=== PATIENT | male | born 1960 | race Caucasian/White ===

== ENCOUNTER 2017-02-07 21:45 | Emergency (ER) | payer OTHER, MEDICAID ==
[~2017-02-07] VITALS: Ht 172.7 cm; Wt 117.9 kg
[~2017-02-07 21:45] MED LIST: ACET325T53 PO; ARIP5TAB10 PO; CARV12.548 PO; CLON0.1T PO; CYCL-10 PO; DOCU250C PO; DULO60CA41 PO; DULR10 RC; FLUT16SP16 NS; FURO-150 PO; GABA600T PO; INSU100I20 SQ; IPRA3AMP9 INH; LIDOINT TP; MAGN400O4 PO; MULT-1117; NITR0.4T6 SL; NOR10 PO; TRAM50TA92 PO; ZOLP5TAB2 PO
[2017-02-07 21:55] VITALS: BP_SYST 123
[2017-02-07] MEDS ORDERED: GASTROGRAFIN 120 ML ONE (22:14)
[2017-02-07] MEDS ORDERED: LORazepam 2 MG/ML VIAL IM ONE (22:45)
[2017-02-07] MEDS ORDERED: LORazepam 2 MG/ML VIAL (FOR ER USE) ONE (22:59)
[2017-02-08 00:10] VITALS: BP_SYST 106
== END 2017-02-08 00:10 | disposition home or self-care (01) ==
LOC: SED 21:45
DX: K94.23 Gastrostomy malfunction (principal); J44.9 Chronic obstructive pulmonary disease, unspecified; I25.2 Old myocardial infarction; K21.9 Gastro-esophageal reflux disease without esophagitis; D64.9 Anemia, unspecified; I13.0 Hypertensive heart and chronic kidney disease with heart failure and stage 1 through stage 4 chronic kidney disease, or unspecified chronic kidney disease; N18.3 Chronic kidney disease, stage 3 (moderate); I50.40 Unspecified combined systolic (congestive) and diastolic (congestive) heart failure; Z79.4 Long term (current) use of insulin; Z46.59 Encounter for fitting and adjustment of other gastrointestinal appliance and device
CPT/HCPCS: 43760; 74240; 96372; 99284; J2060; Q9963

== ENCOUNTER 2017-02-11 07:56 | Inpatient (IN) | payer OTHER, MEDICAID ==
[2017-02-11] VITALS (20 sets, daily range): BP systolic 115–144; BP diastolic 57–88; PULSE 55–62; RESP 13–30; TEMP 90.7–96.7; O2SAT 90–95
[~2017-02-11] VITALS: Ht 172.7 cm; Wt 112.9 kg
[~2017-02-11 07:56] MED LIST changes: +ACET325T53 GT; +ANT30 PO; +CLON0.1T GT; -CLON0.1T PO; +CYCL-365 PO; +DOCU250C GT; -DOCU250C PO; +EPOE1VIA13 SUBCUT; +INSU100V9 SUBCUT; +LISI-600 PO; +MAGN400O4 GT; -MAGN400O4 PO; +MIRT45TA3 PO; +NAPR-690 PO; +NYSCR30 TP; +PANT20TA2 PO; +POTA10TA79 PO
--- NOTE | 2017-02-11 07:57 | NUR ---
Arrived via ALS for SOB which was recognized by staff today. Patient is grunting only. EMs is unable to state what pts baseline mental status is beyond him being confused. Patient is hypothermic on arrival 90.7F rectal. Called housekeeper home for Fanvibe device. Placed in room 1 . Placed on electronic device monitor, blood pressure machine and pulse oximeter. To gown for exam. Side rails up. Report given to Jessica BLOUNT.
--- NOTE | 2017-02-11 08:00 | NUR ---
ER MD Morales at bedside evaluating the patient
--- NOTE | 2017-02-11 08:05 | NUR ---
Patient brought to ER by ALS from [facility] for SOB. Patient has long medical history, bedridden, AAOx2, Gtube, Gupta. Patient has severe generalized pitting +3 edema, anasarca. Rhonchi & wheezes. Will continue to monitor.
--- NOTE | 2017-02-11 08:06 | NUR ---
# 20 gauge angiocath placed to RIGHT WRIST. Use of asceptic technique. Opsite placed over site. Blood return noted. Flushed with 10 cc of normal saline. No evidence of infiltration noted. Patient tolerated well.
--- NOTE | 2017-02-11 08:10 | NUR ---
Trombone Slide Assembler at bedside for blood draw including lactic acid & blood cultures
[2017-02-11] MEDS ORDERED: HYDR2TAB34 PO (08:24)
[2017-02-11] MEDS ORDERED: MULT-300 GT (08:24)
[2017-02-11] MEDS ORDERED: DULR10 RC (08:24)
[2017-02-11] MEDS ORDERED: PRO40 GT (08:24)
[2017-02-11] MEDS ORDERED: ONDA4TAB5 GT (08:24)
[2017-02-11] MEDS ORDERED: ZIN220 GT (08:24)
[2017-02-11] MEDS ORDERED: [UNRECOGNIZED DRUG - OTHER] (08:24)
[2017-02-11] MEDS ORDERED: ASCO120C2 PO (08:24)
[2017-02-11] MEDS ORDERED: NA P118E RC (08:24)
[2017-02-11] MEDS ORDERED: LORA-259 GT (08:24)
[2017-02-11] MEDS ORDERED: ALBUTEROL SULFATE 0.083% 2.5 MG/3 ML VIAL.NEB IH ONE (08:30)
[2017-02-11] MEDS ORDERED: NACL 0.9% 1,000 ML IV ONE (08:30)
[2017-02-11] MEDS ORDERED: IPRATROPIUM BROM 0.5 MG/2.5 ML VIAL.NEB (ATROVENT) IH ONE (08:30)
--- NOTE | 2017-02-11 08:30 | NUR ---
Patient has anasarca, severe testicular and suprapubic edema. Neither the penis or the meatus can be visualized. As a result of anticipated difficult new Gupta insertion, per protocol, new Gupta insertion ON HOLD at this time. ER MD Morales aware.
[2017-02-11 08:32] LABS: BASOPHILS % (AUTO) 0.4 % (0.0-2.0); EOSINOPHILS % (AUTO) 0.2 % (0.0-4.0); HEMATOCRIT 24.3 % (36-54); HEMOGLOBIN 7.9 g/dL (14.0-18.0); LYMPHOCYTES # (AUTO) 0.4 K/uL (1.0-5.5); LYMPHOCYTES % (AUTO) 8.8 % (20.5-51.5); MEAN CORPUSCULAR HEMOGLOBIN 27 pg (27-31); MEAN CORPUSCULAR HGB CONC 33 % (32-36); MEAN CORPUSCULAR VOLUME 83 fL (79.0-98.0); MONOCYTES # (AUTO) 0.2 K/uL (0.0-1.0); MONOCYTES % (AUTO) 3.9 % (1.7-9.3); NEUTROPHILS # (AUTO) 3.8 K/uL (1.8-7.7); NEUTROPHILS % (AUTO) 86.7 % (40.0-70.0); PLATELET COUNT (AUTO) 118 K/uL (130-430); RED BLOOD CELL COUNT(AUTO) 2.92 MIL/uL (4.2-6.2); RED CELL DISTRIBUTION WIDTH 16.6 % (9.0-15.0); WHITE BLOOD COUNT (AUTO) 4.4 K/uL (4.8-10.8)
--- NOTE | 2017-02-11 08:40 | NUR ---
Medication reconciliation completed with information provided by - list from facility. Any prior medication reconciliation on file was reviewed and corrected.
[2017-02-11] MEDS ORDERED: cefTRIAXone 2 GM VIAL ONE (08:44)
[2017-02-11 08:52] LABS: INR 1.1 (0.80-1.20); PROTHROMBIN TIME 12.1 SECS (9.5-12.5)
--- NOTE | 2017-02-11 09:10 | NUR ---
Patient arrived with midline to left upper arm. Dressing is paritially falling off, there are multiple layers of gauze under tagaderm, however there is no bio-patch. Dressing removed. Liz-insertion site cleaned with ETOH and chlorohexadine, bio-patch applied all with sterile technique.
[2017-02-11 09:44] LABS: CALCIUM 8.1 mg/dL (8.4-11.0); CREATININE 2.34 mg/dL (0.55-1.30)
[2017-02-11 09:49] LABS: ALBUMIN 2.3 g/dL (3.4-4.8); TOTAL BILIRUBIN 0.7 mg/dL (0.0-1.0); TOTAL PROTEIN, SERUM 6.6 g/dL (6.4-8.3)
[2017-02-11 10:05] LABS: POTASSIUM 5.6 mmol/L (3.5-5.1)
--- NOTE | 2017-02-11 10:05 | NUR ---
Patient was off unit for CT as per [facility] automation engineering technician the patient appeared blue, without obeservable chest rise. ER staff responded. Pulse was poorly palpable. Airway was opened, patient was placed on high flow O2. Cardiac monitoring was resumed, patient found to have severe bradycardiac in the 30s with wide complex rhythem. Patient immediantly returned to ER for further care.
--- NOTE | 2017-02-11 10:12 | NUR ---
On arrival back to ER HR 55 with SR narrow complex rhythem. Patient in fowlers position with High flow O2. RT is at bedside getting ready for BiPAP.
--- NOTE | 2017-02-11 10:30 | NUR ---
PT IN CT SCAN AT 1003 CALLED THAT PT NOT BREATHING . ENTERED CT ROOM PATIENT ON ROOM AIR. AMBU BAG USED AT 100% RETURNED PATIENT TO ER BED 1 PLACED ON BIPAP AT 10/5 BR12 100% FIO2.. WILL DRAW ABG IN 30 MIN. PATIENT BREATHING AT RR17 HR 59. PATIENTS COLOR PINK SAT 100% AT THIS TIME.
[2017-02-11 10:46] LABS: BLOOD GAS PH 7.252 (7.350-7.450)
[2017-02-11 10:47] LABS: ABG TOTAL HEMOGLOBIN 8.3 G/dL (12.0-18.0); BLOOD GAS BASE EXCESS -5.4 mmol/L (-3.0-3.0); BLOOD GAS COHb% 0.3 % (0.5-1.5); BLOOD GAS HHB 1.3 % (0.0-6.0); BLOOD O2Hb% 98.1 % (94.0-97.0)
--- NOTE | 2017-02-11 10:56 | NUR ---
Patient will be admitted to care of DR GEORGE. Admitted to ICU unit. Will go to room . Belongings list completed. Summary report printed. Report given to MINE.
--- NOTE | 2017-02-11 11:05 | NUR ---
Transfer to ICU 4 via ACLS protocol. Licensed nurse present. IV present no signs or symptoms of infiltration.
--- NOTE | 2017-02-11 11:05 | NUR ---
RECEIVED PT FROM ED TO ICU BED 4 AROUSABLE BUT DOESN'T ANSWER QUESTIONS. RR 30/ SATS 93% WITH BIPAP 10/5//40%. LUNGS WITH CRACKLES AND WHEEZING BILAT. PT HAS A GT SITE. ABD DISTENDED WITH BOWEL SOUNDS. PT HAS GENERALIZED EDEMA 4= PITTING INCLUDING EXTREMITIES. UNABLE TO FEEL PULSES. SALINE LOCK 22G TO RIGHT WRIST AND LEFT UPPER ARM PICC LINE. FLUSHES WELL AND GOOD BLOOD RETURN. SITE REDRESSED DRESSING WAS UNPEELING AND CATHETER EXPOSED. SR ON MONITOR. VSS. ARMS AND LEGS HAVE DRY PEELING SKIN WITH SCABS. COCCYX HAS DENUDING. PHOTOS TAKEN. PER ER, PT KEEPS TAKING BIPAP OFF AND RESTRAINTS APPLIED TO BOTH WRISTS UPON ARRIVAL TO ICU.
--- NOTE | 2017-02-11 11:30 | NUR ---
CALLED DR GEORGE FOR ORDERS, HE SAID HE WOULD BE IN. PT KEEPS TAKING OFF BIPAP DESPITE RESTRAINTS.
--- NOTE | 2017-02-11 13:30 | NUR ---
DR CARVALHOIUM IN TO SEE PT. ORDERS LEFT.
[2017-02-11] MEDS ORDERED: MILK OF MAGNESIA 30 ML UDC PO PRN (14:00)
[2017-02-11] MEDS ORDERED: NA PHOS,M-B/NA PHOS,DI-BA 118 ML (FLEET ENEMA) RC PRN (14:00)
[2017-02-11] MEDS ORDERED: ONDANSETRON 4 MG ODT TAB GT PRN (14:00)
[2017-02-11] MEDS ORDERED: BISACODYL 10 MG/SUPPOSITORY RC PRN (14:00)
--- NOTE | 2017-02-11 14:00 | NUR ---
DR. CAPELLAN IN TO SEE PT. ORDERS LEFT.
[2017-02-11] MEDS ORDERED: DOCUSATE SODIUM 100 MG/10 ML UDC GT PRN (14:15)
[2017-02-11] MEDS ORDERED: ACETAMINOPHEN 650 MG/20.3 ML UDC GT PRN (14:15)
[2017-02-11 14:36] LABS: ABG TOTAL HEMOGLOBIN 8.4 G/dL (12.0-18.0); BLOOD GAS BASE EXCESS -2.7 mmol/L (-3.0-3.0); BLOOD GAS COHb% 0.4 % (0.5-1.5); BLOOD GAS HHB 8.9 % (0.0-6.0); BLOOD GAS PH 7.373 (7.350-7.450); BLOOD O2Hb% 90.4 % (94.0-97.0)
--- NOTE | 2017-02-11 15:15 | NUR ---
RT NOTES Found pt off of BIPAP, on 2L NC per Dr Snider's order. Pt. is claiming he is having SOB. Pt was educated on HHN tx, deep breathing and coughing exercises. Refer to progress notes.
[2017-02-11] MEDS: IPRATROPIUM/ALBUTEROL SULFATE 3 ML AMPUL.NEB INH PRN ×2 (15:20→21:52)
--- NOTE | 2017-02-11 15:27 | NUR ---
RT NOTES Placed pt. back on BIPAP, with same settings 08/24 BUR 14 40% due to pt's continued complain of SOB and continued wheezing despite HHN tx. Pt. confirm, respiratory status improved after being back on BIPAP. Will monitor pt.
[2017-02-11] MEDS: MILK OF MAGNESIA 30 ML UDC GT SCH (16:06)
[2017-02-11] MEDS: LORazepam 1 MG TABLET GT PRN ×2 (16:07→21:58)
--- NOTE | 2017-02-11 16:30 | NUR ---
CALLED DR CAPELLAN REGARDING PTS C/O UNABLE TO BREATH ON 022L NC AND INCREASED WHEEZING AND TIGHTNESS. ORDERS LEFT FOR SOLUMEDROL.
[2017-02-11] MEDS ORDERED: methylPREDNISolone SOD SUCC/PF 62.5 MG/ML VIAL IVP ONE (17:30)
[2017-02-11] MEDS: methylPREDNISolone SOD SUCC/PF 62.5 MG/ML VIAL IVP SCH (18:44)
[2017-02-11] MEDS: HYDROmorphone 2 MG TAB GT PRN ×2 (18:50→23:30)
--- NOTE | 2017-02-11 19:00 | NUR ---
SPOKE WITH DR GEORGE REGARDING ANTIBIOTIC COVERAGE. HE WILL BE IN TO SEE PT IN THE AM AND DECIDE. REMAINS SR. CONTINUE TO TAKE BIPAP OFF WITH RESTRAINTS ON. PT MEDICATED WITH DILAUDID AND ATIVAN VIA GT FOR AGITATION.
--- NOTE | 2017-02-11 19:30 | NUR ---
OPENING NOTE Pt received from day shift RN. Pt awake and alert, oriented to person. Pt appears anxious, calling out to staff. Pt oriented to place and reassurance provided. Pt on bipap, tolerating settings with O2 SAT of 93%. Pt is NSR. +4 pitting edema noted to all four extremities. Pt receiving TF at 50 mL/hr. Correct GT placement confirmed via auscultation and aspiration of residual. MIROSLAVA single-lumen PICC present, flushed with blood return. [address] to right wrist, flushes easy. No redness/swelling observed at either site. Gupta catheter in place. Yellow urine draining, securement device in place. Bilateral soft-wrist restraints are in place. No signs of injury noted. Will turn and reposition Q2HR. Heels floated off bed. Bed locked and in low position, call light within reach. Will continue to monitor pt closely.
[2017-02-12] VITALS (29 sets, daily range): BP systolic 101–152; BP diastolic 57–86; PULSE 55–80; RESP 11–23; TEMP 96.7–97.6; O2SAT 92–99
--- NOTE | 2017-02-12 | NUR ---
NURSING NOTE Pt calling out for nursing and requires frequent reassurance and reorientation. Tries to reach for mask despite restraints being in place. Pt re-educated multiple times on reason for restraint use and importance of keeping bipap mask in place to assist with his breathing. No signs of injury due to restraints. Pt has been medicated with ativan x1 prn and dilaudid x1 prn for anxiety and pain. Will continue to monitor pt closely.
--- NOTE | 2017-02-12 00:05 | NUR ---
TF RESIDUAL TF residual 450 mL. TF held per MD orders. Will continue to monitor.
--- NOTE | 2017-02-12 02:00 | NUR ---
TF RESIDUAL RECHECK TF residual recheck yielded residual volume of 400 mL. TF held per MD order. Will continue to monitor.
[2017-02-12] MEDS: LORazepam 1 MG TABLET GT PRN ×2 (02:05→13:38)
--- NOTE | 2017-02-12 04:00 | NUR ---
HYGIENE Pt medicated for pain with prn dilaudid. Hygiene provided to pt at this time. Oral, skin, opal, and guzman care provided and CHG bath given. Linens changed. Z-guard applied to sacral area and scrotum. Pt repositioned q2hr with heels floated off bed. Pt tolerated activity well.
--- NOTE | 2017-02-12 04:05 | NUR ---
TF RESIDUAL TF residual recheck yielded volume of 350 mL. TF remains on hold per MD order. Will continue to monitor.
[2017-02-12] MEDS: HYDROmorphone 2 MG TAB GT PRN ×3 (04:16→21:28)
[2017-02-12] MEDS: methylPREDNISolone SOD SUCC/PF 62.5 MG/ML VIAL IVP SCH ×3 (06:07→21:21)
[2017-02-12] MEDS: INSULIN REGULAR, HUMAN 100 UNITS/ML, 10 ML VIAL (novoLIN R) SUBCUT PRN ×4 (06:41→21:30)
[2017-02-12 07:05] LABS: ALBUMIN 2.1 g/dL (3.4-4.8); CALCIUM 8.3 mg/dL (8.4-11.0); CREATININE 2.42 mg/dL (0.55-1.30); POTASSIUM 5.5 mmol/L (3.5-5.1); TOTAL BILIRUBIN 0.5 mg/dL (0.0-1.0); TOTAL PROTEIN, SERUM 6.2 g/dL (6.4-8.3)
--- NOTE | 2017-02-12 07:06 | NUR ---
CLOSING NOTE Pt currently resting quietly, but continues to require frequent reassurance and reorientation. Attempts to remove bipap even while hands are in restraints. O2 SAT of 97% with bipap on current settings. VSS. TF remains on hold. Day shift nurse informed of TF residual and DVT prophylaxis. Report given via SBAR. All care endorsed.
[2017-02-12 07:11] LABS: BASOPHILS % (AUTO) 0.1 % (0.0-2.0); HEMATOCRIT 22.6 % (36-54); HEMOGLOBIN 7.6 g/dL (14.0-18.0); LYMPHOCYTES # (AUTO) 0.3 K/uL (1.0-5.5); LYMPHOCYTES % (AUTO) 7.3 % (20.5-51.5); MEAN CORPUSCULAR HEMOGLOBIN 29 pg (27-31); MEAN CORPUSCULAR HGB CONC 34 % (32-36); MEAN CORPUSCULAR VOLUME 85 fL (79.0-98.0); MONOCYTES % (AUTO) 0.5 % (1.7-9.3); NEUTROPHILS # (AUTO) 3.8 K/uL (1.8-7.7); NEUTROPHILS % (AUTO) 92.1 % (40.0-70.0); PLATELET COUNT (AUTO) 83 K/uL (130-430); RED BLOOD CELL COUNT(AUTO) 2.65 MIL/uL (4.2-6.2); RED CELL DISTRIBUTION WIDTH 17.1 % (9.0-15.0); WHITE BLOOD COUNT (AUTO) 4.1 K/uL (4.8-10.8)
[2017-02-12] MEDS: IPRATROPIUM/ALBUTEROL SULFATE 3 ML AMPUL.NEB INH PRN ×2 (07:29→15:23)
--- NOTE | 2017-02-12 07:30 | NUR ---
PT RECEIVED IN BED WITH EYES OPEN AND ALERT/CONFUSED, BIPAP IN PLACE WITH SETTINGS OF 10/5 40% AND SATURATION 95%. LUNGS SLIGHT WHEEZING BILATERALLY UPON AUSCULTATION. RESTRAINTS IN PLACE DUE TO PT PULLING OFF BIPAP MASK AND IV LINES. SINUS RHYTHM AND SINUS BRADYCARDIA. PITTING EDEMA 4+ BILATERALLY IN LEGS AND FEET. UNABLE TO FEEL PEDAL PULSES. FEET LIFTED OFF BED WITH PILLOW SUPPORT. ABD DISTENDED WITH HYPOACTIVE BOWEL SOUNDS. G-TUBE IN PLACE AND TUBE FEEDING ON HOLD DUE TO CONTINUED HIGH RESIDUAL OF 250CC. HOB UP. ENGLE CATHETER WITH SMALL AMOUNT OF JENNIFER URINE. SCD IN PLACE. 20G SALINE LOCK RIGHT WRIST IN TACT. LEFT UPPER ARM PICC LINE WITH 12 CM EXTERNAL. DRESSING DRY AND INTACT. NO IV FLUIDS INFUSING AT THIS TIME. PT IN ISOLATION FOR HX OF MRSA NARES. SKIN ON ARMS AND LEGS WITH RASH AND SCABS. WILL CONTINUE TO MONITOR. Addendum: 02/12/17 at 1647 by Lucia DAILEY DENUDING NOTED TO COCCYX. Z-GUARD IN PLACE.
--- NOTE | 2017-02-12 08:00 | NUR ---
RT NOTES Took pt. off of BIPAP and placed on 2L NC for breakfast. No immediate adverse reactions noted. Will monitor pt.
--- NOTE | 2017-02-12 08:30 | NUR ---
PT C/O BEING HUNGRY. RESIDUAL 250. PT ON PUREED DIET. ONLY TOOK EGGS DUE TO RESIDUAL. PT UNABLE TO FEED HIMSELF. RIGHT SIDE IS WEAK AND CONTRACTED. NO COUGHING OR TROUBLE SWALLOWING. HOB ELEVATED DURING FEEDING.
--- NOTE | 2017-02-12 08:30 | NUR ---
RT NOTES Pt. cont. to tolerate 2L NC well. No respiratory distress noted. SPO2 92%
[2017-02-12] MEDS: PANTOPRAZOLE GRANULES PACKET 40 MG GT SCH (08:31)
[2017-02-12] MEDS: MILK OF MAGNESIA 30 ML UDC GT SCH (08:31)
--- NOTE | 2017-02-12 09:28 | NUR ---
PT COMPLAINS OF PAIN /. ADMINISTERED DILAUDID FOR PAIN. WILL CONTINUE TO MONITOR AND EVALUATE RESPONSE.
--- NOTE | 2017-02-12 09:35 | NUR ---
RT NOTES Found pt's SPO2 91%, H.R 67 R.R 17, no distress noted. Increased O2 to 3L per titration order to keep sat. >92. Will cont. to monitor pt.
--- NOTE | 2017-02-12 11:00 | NUR ---
DR. CAPELLAN AT BEDSIDE. ORDERS LEFT.
--- NOTE | 2017-02-12 11:24 | NUR ---
RT NOTES ABG results given to Dr Snider. No changes at this time. OK to keep pt. on 3L NC and keep sat. >92%. Current saturation is 93%. no respiratory distress noted. Will monitor pt.
[2017-02-12] MEDS ORDERED: ENOXAPARIN SODIUM 40 MG/0.4 ML SYRINGE SUBCUT ONE (11:30)
[2017-02-12 11:53] LABS: ABG TOTAL HEMOGLOBIN 8.7 G/dL (12.0-18.0); BLOOD GAS BASE EXCESS -2.6 mmol/L (-3.0-3.0); BLOOD GAS PH 7.386 (7.350-7.450)
[2017-02-12 11:54] LABS: BLOOD GAS COHb% 0.2 % (0.5-1.5); BLOOD GAS HHB 14.9 % (0.0-6.0); BLOOD O2Hb% 84.3 % (94.0-97.0)
[2017-02-12] MEDS ORDERED: cefTRIAXone 1 GM IVPB PREMIX 50 ML IV ONE (12:00)
--- NOTE | 2017-02-12 12:30 | NUR ---
TUBE FEEDING RESIDUAL 200. DID NOT GIVE LUNCH DUE TO CONTINUED HIGH RESIDUAL.
--- NOTE | 2017-02-12 15:10 | NUR ---
SPOKE TO DR CAPELLAN REGARDING LOW URINE OUTPUT. ORDERS LEFT FOR IVF TO BE STARTED.
[2017-02-12] MEDS: MUPIROCIN 2% TOPICAL OINTMENT 22 GM TP SCH ×2 (15:17→21:22)
--- NOTE | 2017-02-12 15:30 | NUR ---
PT HAS 150 CC TUBE FEED RESIDUAL. TUBE FEEDS CONTINUED TO BE HELD.
--- NOTE | 2017-02-12 19:14 | NUR ---
CALLED DR. SOLOMON FOR CONSULT @5035. SPOKE TO RYANNE. NURSE IS AWARE.
--- NOTE | 2017-02-12 19:25 | NUR ---
SPOKE WITH DR SOLOMON ON THE PHONE REGARDING LOW URINE OUTPUT. ORDER LEFT.
--- NOTE | 2017-02-12 19:30 | NUR ---
OPENING NOTE Pt received from day shift RN. Pt is awake, alert and oriented to person. NSR on air sampling and monitoring, tolerating 3L O2 via nasal cannula with O2 SAT of 98%. Correct placement of GTube verified via auscultation of air. Residual volume 90 mL. Tubefeeding will be restarted. PICC to MIROSLAVA. Single lumen, infusing IVF. Bilateral-soft wrist restraints in place. No signs of injury present as a result of restraints. Gupta catheter in place, draining yellow urine. Heels floated off bed, bed locked and in low position with call light in reach. Will continue to monitor pt closely. Will turn/reposition pt q2hr.
[2017-02-12] MEDS ORDERED: SODIUM POLYSTYRENE SULFONATE 15 GM/60 ML UDBTL GT SCH (19:45)
[2017-02-13] VITALS (24 sets, daily range): BP systolic 132–169; BP diastolic 77–98; PULSE 82–91; RESP 14–24; TEMP 97.5–98.3; O2SAT 90–98; Ht 172.7 cm; Wt 112.9 kg
--- NOTE | 2017-02-13 | NUR ---
CONFUSION Pt asleep off and on throughout night. While awake, frequently calls out for . Reoriented to current location and time of day.
[2017-02-13] MEDS: LORazepam 1 MG TABLET GT PRN ×3 (04:36→13:48)
--- NOTE | 2017-02-13 04:40 | NUR ---
ANXIETY Pt anxious/worried. Reassurance and reorientation provided, but pt difficult to console. PRN ativan administered per orders.
--- NOTE | 2017-02-13 05:45 | NUR ---
PAIN Pt complains of pain 07/30. PRN dilaudid administered per orders.
[2017-02-13] MEDS: HYDROmorphone 2 MG TAB GT PRN ×2 (05:57→09:56)
[2017-02-13] MEDS: methylPREDNISolone SOD SUCC/PF 62.5 MG/ML VIAL IVP SCH (05:57)
[2017-02-13] MEDS: INSULIN REGULAR, HUMAN 100 UNITS/ML, 10 ML VIAL (novoLIN R) SUBCUT PRN ×4 (06:04→21:01)
[2017-02-13 06:37] LABS: HEMATOCRIT 22.9 % (36-54); HEMOGLOBIN 7.8 g/dL (14.0-18.0); LYMPHOCYTES # (AUTO) 0.4 K/uL (1.0-5.5); LYMPHOCYTES % (AUTO) 8.2 % (20.5-51.5); MEAN CORPUSCULAR HEMOGLOBIN 29 pg (27-31); MEAN CORPUSCULAR HGB CONC 34 % (32-36); MEAN CORPUSCULAR VOLUME 85 fL (79.0-98.0); MONOCYTES # (AUTO) 0.1 K/uL (0.0-1.0); MONOCYTES % (AUTO) 1.9 % (1.7-9.3); NEUTROPHILS # (AUTO) 4.9 K/uL (1.8-7.7); NEUTROPHILS % (AUTO) 89.9 % (40.0-70.0); PLATELET COUNT (AUTO) 101 K/uL (130-430); RED BLOOD CELL COUNT(AUTO) 2.69 MIL/uL (4.2-6.2); RED CELL DISTRIBUTION WIDTH 17.3 % (9.0-15.0); WHITE BLOOD COUNT (AUTO) 5.4 K/uL (4.8-10.8)
[2017-02-13 06:41] LABS: CALCIUM 8.2 mg/dL (8.4-11.0); CREATININE 2.38 mg/dL (0.55-1.30); POTASSIUM 5.3 mmol/L (3.5-5.1)
--- NOTE | 2017-02-13 06:44 | NUR ---
CLOSING NOTE Pt resting quietly in bed. No acute distress noted. Tolerating nasal cannula with O2 SAT 96-98%. Tubefeeding infusing, pt tolerating well. IVF infusing through MIROSLAVA PICC. No redness/swelling observed at site. Pt turned/repositioned q2hr. Skin care provided as needed and CHG bath provided. SCDs in place to bilateral lower extremities. All needs met. Care will be endorsed to day shift RN.
[2017-02-13 07:00] LABS: IRON (SERUM) 116 mcg/dL (59-158); TOTAL IRON BIND. CAPACITY 167 ug/dL (250-450)
--- NOTE | 2017-02-13 08:00 | NUR ---
AM NOTES IN BED AWAKE, CONFUSED. NO ACUTE DISTRESS NOTED. ON O2 3L O2 SAT AT 93%. ON TUBE FEEDING TOLERATING WELL. IVF INFUSING WELL ON THE LEFT UPPER ARM PICC LINE. ON BILATERAL WRIST RESTRAINTS. TURN AND REPOSITIONED FOR COMFORT. WILL MONITOR.
--- NOTE | 2017-02-13 09:00 | NUR ---
tube feeding/ breakfast tolerating tube feeding at this time. no residual noted. eat 30% 0f his breakfast.
--- NOTE | 2017-02-13 09:05 | NUR ---
Nutrition Update Elijah Scale 10 noted. Pt admitted for acute respiratory failure, COPD. Diet: pureed BMI: 38 kg/m2 RD to follow per nutrition care standards.
[2017-02-13] MEDS: MILK OF MAGNESIA 30 ML UDC GT SCH (09:09)
[2017-02-13] MEDS: ENOXAPARIN SODIUM 40 MG/0.4 ML SYRINGE SUBCUT SCH (09:09)
[2017-02-13] MEDS: PANTOPRAZOLE GRANULES PACKET 40 MG GT SCH (09:10)
[2017-02-13] MEDS: cefTRIAXone 1 GM IVPB PREMIX 50 ML IV SCH (09:11)
--- NOTE | 2017-02-13 09:11 | NUR ---
DR. SOUSA IN TO SEE PT. ORDERS LEFT.
[2017-02-13] MEDS: MUPIROCIN 2% TOPICAL OINTMENT 22 GM TP SCH ×2 (09:22→21:02)
--- NOTE | 2017-02-13 10:00 | NUR ---
NOTES TURNED AND REPOSITIONED. COMPLAINED OF PAIN. MEDICATED ORDERED. WILL MONITOR.
[2017-02-13] MEDS: IPRATROPIUM/ALBUTEROL SULFATE 3 ML AMPUL.NEB INH PRN ×2 (12:01→18:38)
[2017-02-13] MEDS ORDERED: FUROSEMIDE 100 MG in D5W 90 ML IV SCH (13:00)
[2017-02-13] MEDS: methylPREDNISolone SOD SUCC 40 MG/ML VIAL IVP SCH ×2 (13:47→21:02)
--- NOTE | 2017-02-13 15:40 | NUR ---
MD ROUNDS SEEN BY DR. GEORGE AT BEDSIDE.
--- NOTE | 2017-02-13 18:30 | NUR ---
NOTES HAD A MEDIUM SOFT BM.CLEANED AND REPOSITIONED. LASIX DRIP INFUSING WELL. TOLERATED FEEDING. REFUSED TO EAT DINNER AT THIS TIME. WILL ENDORSE
--- NOTE | 2017-02-13 19:00 | NUR ---
Initial Notes Patient asleep at this time. No s/s of pain noted. No SOB noted, on 3L/NC, recently received breathing treatment. No s/s of nausea/vomiting. PICC line patent, flushes well, infusing Lasix drip as ordered. Gupta catheter in place, output noted. Patient repositioned in bed. Bilateral wrist restraints in place, circulation checks done. Tube feeding ongoing, no residual noted at this time. Will continue to monitor.
[2017-02-13] MEDS: ASCORBIC ACID 500 MG TABLET GT SCH (21:02)
--- NOTE | 2017-02-13 22:00 | NUR ---
Notes Patient sleeping. No s/s of pain noted. No SOB noted. IV site patent, flushes well. Patient given CHG bath and repositioned in bed. Will continue to monitor.
[2017-02-14] VITALS (34 sets, daily range): BP systolic 139–184; BP diastolic 77–112; PULSE 74–93; RESP 13–24; TEMP 97.4–98.4; O2SAT 78–100
[2017-02-14] MEDS: cloNIDine HCL 0.1 MG TABLET GT PRN ×2 (01:03→08:26)
--- NOTE | 2017-02-14 01:15 | NUR ---
Notes Patient saturating at 84-87% on 3L/NC, c/o SOB; placed on Bipap by RT- saturation at 94-96% at this time. Medicated pt for blood pressure of 184/104, will re assess. Will continue to monitor pt.
[2017-02-14] MEDS: HYDROmorphone 2 MG TAB GT PRN (02:11)
--- NOTE | 2017-02-14 02:42 | NUR ---
Notes Patient sleeping. No s/s of pain noted. No SOB noted. IV site patent, flushes well. Patient repositioned in bed. Will continue to monitor.
--- NOTE | 2017-02-14 04:00 | NUR ---
Notes Patient sleeping at this time. Afebrile. No SOB noted, maintained on Bipap 40%. No s/s of pain noted. Patient repositioned in bed. Will continue to monitor.
[2017-02-14] MEDS: methylPREDNISolone SOD SUCC 40 MG/ML VIAL IVP SCH ×3 (06:08→21:57)
[2017-02-14] MEDS: INSULIN REGULAR, HUMAN 100 UNITS/ML, 10 ML VIAL (novoLIN R) SUBCUT PRN ×4 (06:11→22:01)
--- NOTE | 2017-02-14 06:40 | NUR ---
Closing Notes Patient asleep at this time. No s/s of pain noted. No SOB noted. No s/s of nausea/vomiting. PICC line patent, flushes well. Patient repositioned in bed. Bilateral wrist restraints in place, circulation checks done. Tube feeding ongoing, no residual noted at this time. Goals met. Will continue to monitor.
[2017-02-14 06:53] LABS: EOSINOPHILS % (AUTO) 0.1 % (0.0-4.0); HEMATOCRIT 22.8 % (36-54); HEMOGLOBIN 7.7 g/dL (14.0-18.0); LYMPHOCYTES # (AUTO) 0.5 K/uL (1.0-5.5); LYMPHOCYTES % (AUTO) 5.9 % (20.5-51.5); MEAN CORPUSCULAR HEMOGLOBIN 29 pg (27-31); MEAN CORPUSCULAR HGB CONC 34 % (32-36); MEAN CORPUSCULAR VOLUME 85 fL (79.0-98.0); MONOCYTES # (AUTO) 0.3 K/uL (0.0-1.0); MONOCYTES % (AUTO) 3.3 % (1.7-9.3); NEUTROPHILS # (AUTO) 6.9 K/uL (1.8-7.7); NEUTROPHILS % (AUTO) 90.7 % (40.0-70.0); PLATELET COUNT (AUTO) 110 K/uL (130-430); RED BLOOD CELL COUNT(AUTO) 2.67 MIL/uL (4.2-6.2); RED CELL DISTRIBUTION WIDTH 17.5 % (9.0-15.0); WHITE BLOOD COUNT (AUTO) 7.7 K/uL (4.8-10.8)
[2017-02-14 07:18] LABS: ALBUMIN 2.6 g/dL (3.4-4.8); CALCIUM 8.4 mg/dL (8.4-11.0); CREATININE 2.57 mg/dL (0.55-1.30); POTASSIUM 5.4 mmol/L (3.5-5.1); TOTAL BILIRUBIN 0.6 mg/dL (0.0-1.0); TOTAL PROTEIN, SERUM 6.7 g/dL (6.4-8.3)
--- NOTE | 2017-02-14 07:39 | NUR ---
AM Assessment Received pt AAOx1 with confusion. Pt is on BiPAP 40% FiO2. No SOB or signs of acute distress noted. Pt denies any pain or discomfort. Skin warm and dry. PICC present on PATRICK and MIROSLAVA, both clean, dry, intact, patent. Pt is on lasix drip 3 ml/hr. Generalized pitting edema noted on BUE 2+, BLE 3+, and scrotum. BUE with multiple bruises and scabs. Bilateral wrist restraints in place for safety and pulling at tubes, no skin breakdown noted, pulses present. GT in place with Diabetesource 50 ml/hr. Gupta in place draining yellow urine. SCDs in place. BLE elevated with pillows. Bed in lowest position. Will continue to monitor.
[2017-02-14] MEDS: IPRATROPIUM/ALBUTEROL SULFATE 3 ML AMPUL.NEB INH PRN (07:43)
--- NOTE | 2017-02-14 08:06 | NUR ---
Patient Update Pt saturating 100% with bipap. RT admistering breathing treatment and change pt from bipap to 3L O2 via NC. Will continue to monitor.
--- NOTE | 2017-02-14 08:15 | NUR ---
Patient Update Pt noted with SOB and wheezing post breathing treatment. Placed pt back on bipap with 40% FiO2. Pt also noted with elevated BP 180/110, administered PRN clonidine. Will continue to monitor.
[2017-02-14] MEDS: ENOXAPARIN SODIUM 40 MG/0.4 ML SYRINGE SUBCUT SCH (08:27)
[2017-02-14] MEDS: PANTOPRAZOLE GRANULES PACKET 40 MG GT SCH (08:27)
[2017-02-14] MEDS: ASCORBIC ACID 500 MG TABLET GT SCH ×2 (08:27→21:58)
[2017-02-14] MEDS: MILK OF MAGNESIA 30 ML UDC GT SCH (08:27)
[2017-02-14] MEDS: cefTRIAXone 1 GM IVPB PREMIX 50 ML IV SCH (08:28)
[2017-02-14] MEDS: MUPIROCIN 2% TOPICAL OINTMENT 22 GM TP SCH ×2 (08:28→21:58)
[2017-02-14 08:56] LABS: ABG TOTAL HEMOGLOBIN 8.6 G/dL (12.0-18.0); BLOOD GAS BASE EXCESS -2.9 mmol/L (-3.0-3.0); BLOOD GAS COHb% 0.5 % (0.5-1.5); BLOOD GAS HHB 6.9 % (0.0-6.0); BLOOD GAS PH 7.426 (7.350-7.450)
--- NOTE | 2017-02-14 09:11 | NUR ---
Dr. Rowland in to see pt.
--- NOTE | 2017-02-14 09:15 | NUR ---
Lasix Lasix titrate to 4 mg/hr per Dr. Rowland's orders. Will continue with plan of care.
--- NOTE | 2017-02-14 10:00 | NUR ---
Dr. Chilel at bedside with pt.
--- NOTE | 2017-02-14 10:12 | NUR ---
Social Service Note: Pt referred by social work msw for ICU Screening; GLASS PROCESSING WORKER reviewed pt's chart; pt was admitted from [facility] with acute respiratory failure. GLASS PROCESSING WORKER observed pt resting in bed with bi-pap on. GLASS PROCESSING WORKER will remain available for support and will follow up as needs arise.
[2017-02-14] MEDS: FUROSEMIDE 100 MG in D5W 90 ML IV SCH (10:21)
[2017-02-14] MEDS: hydrALAZINE HCL 20 MG/ML VIAL IVP PRN ×2 (10:56→18:52)
--- NOTE | 2017-02-14 11:05 | NUR ---
BP/PICC Line Pt's BP still elevated 178/106 despite administration of PRN clonidine via GT. Received new orders from Dr. Rowland, administered hydralazine PRN IVP, effective. Also removed PICC line from [facility] per Dr. Rowland's orders, bleeding controlled, catheter tip intact, PICC line measures 46 cm. Pt in no apparent distress and is drowsy/lethargic and is able to follow simple commands. Bed in lowest position. Will continue to monitor.
[2017-02-14] MEDS: PIPERACILLIN/TAZO 2.25G/DEX-IS 50 ML IV SCH ×2 (11:22→16:58)
--- NOTE | 2017-02-14 13:24 | NUR ---
Patient Round Pt resting in bed, arousable to voice, able to make needs known, able to verbalize needs. Pt denies any pain or discomfort at this time. Pt repositioned. No BM noted. Will continue to monitor.
[2017-02-14 15:12] LABS: FOLATE (FOLIC ACID) 10.3 ng/mL (>3.0)
--- NOTE | 2017-02-14 19:20 | NUR ---
Closing/Endorsement Pt remains drowsy, arousable to name, able to follow simple commands. No SOB or signs of distress noted. BP controlled with PRN hydralazine. Bed in lowest position. Bilateral soft wrist restraints in place for safety, no skin breakdown noted, pulses present. Endorsed plan of care to Mass RN via SBAR tool and bedside round.
[2017-02-14] MEDS: LORazepam 1 MG TABLET GT PRN (21:58)
[2017-02-15] VITALS (33 sets, daily range): BP systolic 128–175; BP diastolic 71–100; PULSE 73–86; RESP 12–24; TEMP 97.6–98.2; O2SAT 87–99
[2017-02-15] MEDS: PIPERACILLIN/TAZO 2.25G/DEX-IS 50 ML IV SCH ×4 (00:24→17:23)
[2017-02-15] MEDS: hydrALAZINE HCL 20 MG/ML VIAL IVP PRN ×2 (01:12→12:41)
[2017-02-15] MEDS: HYDROmorphone 2 MG TAB GT PRN (03:53)
[2017-02-15] MEDS: cloNIDine HCL 0.1 MG TABLET GT PRN ×2 (03:54→17:32)
[2017-02-15] MEDS: methylPREDNISolone SOD SUCC 40 MG/ML VIAL IVP SCH ×3 (06:26→21:30)
[2017-02-15] MEDS: INSULIN REGULAR, HUMAN 100 UNITS/ML, 10 ML VIAL (novoLIN R) SUBCUT PRN ×4 (06:29→21:38)
[2017-02-15 06:40] LABS: BASOPHILS % (AUTO) 0.2 % (0.0-2.0); CALCIUM 8.3 mg/dL (8.4-11.0); CREATININE 2.73 mg/dL (0.55-1.30); HEMOGLOBIN 7.1 g/dL (14.0-18.0); LYMPHOCYTES # (AUTO) 0.4 K/uL (1.0-5.5); LYMPHOCYTES % (AUTO) 5.8 % (20.5-51.5); MEAN CORPUSCULAR HEMOGLOBIN 29 pg (27-31); MEAN CORPUSCULAR HGB CONC 34 % (32-36); MEAN CORPUSCULAR VOLUME 85 fL (79.0-98.0); MONOCYTES # (AUTO) 0.2 K/uL (0.0-1.0); NEUTROPHILS # (AUTO) 5.5 K/uL (1.8-7.7); PLATELET COUNT (AUTO) 77 K/uL (130-430); POTASSIUM 5.5 mmol/L (3.5-5.1); RED BLOOD CELL COUNT(AUTO) 2.49 MIL/uL (4.2-6.2); RED CELL DISTRIBUTION WIDTH 17.4 % (9.0-15.0); WHITE BLOOD COUNT (AUTO) 6.1 K/uL (4.8-10.8)
[2017-02-15] MEDS: IPRATROPIUM/ALBUTEROL SULFATE 3 ML AMPUL.NEB INH PRN ×2 (07:24→16:06)
--- NOTE | 2017-02-15 07:40 | NUR ---
AM Assessment Received pt AAOx1, able to verbalize needs. Pt is on bipap 08/24, BUR 14, FiO2 40%. Pt denies any pain or discomfort at this time. Skin warm and dry. PICC PATRICK clean, dry, intact, patent, no erythema noted. Noted multiple bruises and scabs on BUE, generalized pitting edema, scrotal edema, redness on sacrum. GT in place with diabetesource 50 ml/hr, 200 ml residual noted, put TF on hold. Gupta in place draining yellow urine. Bilateral soft wrist restraints in place for safety, skin intact, pulses present. Bed in lowest position. Call light in reach. Will continue to monitor. Addendum: 02/15/17 at 1625 by Abbie Lopez RN Pt is on lasix drip 4 mg/hr.
--- NOTE | 2017-02-15 07:40 | NUR ---
RT NOTES Took pt. off of BIPAP and placed on 3L NC for meals. No immediate adverse reactions noted. Pt. was reeducated on deep-breathing and coughing exercises, w/c he was able to demonstrate. Will cont. to monitor pt.
[2017-02-15 07:43] LABS: HEMATOCRIT 21.2 % (36-54)
--- NOTE | 2017-02-15 08:30 | NUR ---
Patient Update Repositioned pt. Pt denies any pain or discomfort. Pt was placed on 3L O2 via NC, saturating at 90%. Pt had some SOB while eating but was able to tolerate meal and had 50%. Pt also encouraged to cough and is able to follow commands and demonstrate. After 15 minutes on 3L O2, pt noted to desaturate to 88%. Pt encouraged to cough again, but pt refused d/t SOB. Administered oral care and placed pt back on bipap. Will continue to monitor.
[2017-02-15] MEDS: ENOXAPARIN SODIUM 40 MG/0.4 ML SYRINGE SUBCUT SCH (09:01)
[2017-02-15] MEDS: ASCORBIC ACID 500 MG TABLET GT SCH ×2 (09:01→21:31)
[2017-02-15] MEDS: MUPIROCIN 2% TOPICAL OINTMENT 22 GM TP SCH ×2 (09:01→21:30)
[2017-02-15] MEDS: MILK OF MAGNESIA 30 ML UDC GT SCH (09:02)
[2017-02-15] MEDS: PANTOPRAZOLE GRANULES PACKET 40 MG GT SCH (09:02)
[2017-02-15] MEDS: LACTOBACILLUS RHAMNOSUS GG 1 CAP CAPSULE PO SCH ×2 (09:02→21:31)
[2017-02-15] MEDS: FUROSEMIDE 100 MG in D5W 90 ML IV SCH (09:08)
--- NOTE | 2017-02-15 10:01 | NUR ---
DISCHARGE PLANNING DC Planning order for LTAC evaluation. Faxed DC Planning order to [facility] office [phone]. Notified Oral Quijano Will follow up. Addendum: 02/15/17 at 1057 by Feli AYALA spoke with Macie, will come and evaluate patient today. Addendum: 02/15/17 at 1508 by Feli Myers DP Spoke with Macie patient accepted at [facility]. Bed assignment will be requested upon discharge order. Macie requested to be made aware if patient will be downgraded or if ICU bed is needed. KYUNG Conner will notify RN. Addendum: 02/15/17 at 1510 by Feli AYALA Per CM admission notes zhanna Iyer requested to not be called.
[2017-02-15] MEDS ORDERED: SODIUM POLYSTYRENE SULFONATE 15 GM/60 ML UDBTL GT ONE (10:15)
[2017-02-15] MEDS ORDERED: SODIUM POLYSTYRENE SULFONATE 15 GM/60 ML UDBTL PO ONE (10:45)
--- NOTE | 2017-02-15 11:29 | NUR ---
Discharge planning Met with Dr Castaneda in nurses' station to discuss plan of care. Dr Castaneda agrees that LTAC eval appropriate for this patient. Order is in [employer]. DC liaison planner will fax binu requesting eval.
--- NOTE | 2017-02-15 14:51 | NUR ---
DC planning: ICU nurse Suzanne will call Dr. Castaneda for LTAC level of care required and discharge order to LTAC-per dc enterprise resource planner Oral Edmond LTAC liaison Macie is currently looking for ICU bed for pt..Pt on bipap 40% and IV Lasix drip-- MINE
--- NOTE | 2017-02-15 16:12 | NUR ---
BT INITIATION: Telephone consent obtained from patient's , Shireen Abdullahi, agreeing to administration of blood. Blood has been typed and crossmatched. Blood sent from blood bank. Information on unit of blood checked against patient wristband at bedside by two nurses. All information matches. Patient or responsible constitution party informed of potential complications associated with blood transfusion. Informed of possible transfusion reaction symptoms. Aware of need to notify nurse at once of itching, shortness of breath, flushing, feeling of impending doom, or other symptoms not previously present. Vital signs taken within 5 minutes prior to initiation of transfusion T 98, P 75, R 17, BP 159/74. RN will remain with patient for first 15 minutes of transfusion at which time vital signs will be re-assessed.
--- NOTE | 2017-02-15 16:18 | NUR ---
15 MINUTES OF BLOOD TRANSFUSION VS T 99, P 76, R 18, BP 160/100. No acute distress noted. Pt denies any pain or discomfort. Pt is receiving 1 of 2 units. Will continue to monitor.
--- NOTE | 2017-02-15 17:00 | NUR ---
Patient Update Pt switch from bipap to 3L O2 via NC for dinner. Tolerating well, SOB minimal, and pt able to cough and mobilize secretions. Pt had 50%-75% of meal. Pt also able to verbalize needs. Will continue to monitor.
--- NOTE | 2017-02-15 18:15 | NUR ---
Blood Transfusion/2nd unit Blood Transfusion 1st unit given, no adverse reactions noted, VSS, afebrile. Started 2nd unit of blood transfusion. VS: T 97.6, P 80, R 17, BP 148/87. Will continue to monitor.
--- NOTE | 2017-02-15 19:40 | NUR ---
Closing/Endorsement Pt remains on 3L O2 via NC, tolerating well, saturating in low 90%, mouth breathing. Pt denies any pain or discomfort. Bilateral soft wrist restraints in place for safety, no skin breakdown noted, pulses present. All extremities elevated with pillow. Pt is still on 2nd unit of blood transfusion and lasix 4mg/hr. Endorsed plan of care to Mass RN via SBAR tool and bedside round.
--- NOTE | 2017-02-15 21:50 | NUR ---
Blood transfusion completed. Vital signs obtained. BP 158/81, Pulse 79, Respiratory rate 18, Temp of 97.7. Pt denied any pain or discomfort.
[2017-02-16] VITALS (27 sets, daily range): BP systolic 151–171; BP diastolic 75–102; PULSE 75–159; RESP 12–20; TEMP 97.6–98.8; O2SAT 89–100
[2017-02-16] MEDS: PIPERACILLIN/TAZO 2.25G/DEX-IS 50 ML IV SCH ×5 (00:50→23:25)
[2017-02-16] MEDS: hydrALAZINE HCL 20 MG/ML VIAL IVP PRN ×4 (01:06→21:21)
[2017-02-16] MEDS: methylPREDNISolone SOD SUCC 40 MG/ML VIAL IVP SCH ×3 (05:53→21:11)
[2017-02-16] MEDS: cloNIDine HCL 0.1 MG TABLET GT PRN ×3 (05:54→17:41)
[2017-02-16] MEDS: INSULIN REGULAR, HUMAN 100 UNITS/ML, 10 ML VIAL (novoLIN R) SUBCUT PRN ×4 (06:14→21:18)
[2017-02-16 06:30] LABS: BASOPHILS % (AUTO) 0.7 % (0.0-2.0); EOSINOPHILS % (AUTO) 0.1 % (0.0-4.0); HEMATOCRIT 27.1 % (36-54); HEMOGLOBIN 9.2 g/dL (14.0-18.0); LYMPHOCYTES # (AUTO) 0.3 K/uL (1.0-5.5); LYMPHOCYTES % (AUTO) 4.8 % (20.5-51.5); MEAN CORPUSCULAR HEMOGLOBIN 29 pg (27-31); MEAN CORPUSCULAR HGB CONC 34 % (32-36); MEAN CORPUSCULAR VOLUME 85 fL (79.0-98.0); MONOCYTES # (AUTO) 0.3 K/uL (0.0-1.0); MONOCYTES % (AUTO) 6.2 % (1.7-9.3); NEUTROPHILS # (AUTO) 4.9 K/uL (1.8-7.7); NEUTROPHILS % (AUTO) 88.2 % (40.0-70.0); PLATELET COUNT (AUTO) 72 K/uL (130-430); RED BLOOD CELL COUNT(AUTO) 3.18 MIL/uL (4.2-6.2); RED CELL DISTRIBUTION WIDTH 16.3 % (9.0-15.0); WHITE BLOOD COUNT (AUTO) 5.5 K/uL (4.8-10.8)
[2017-02-16 06:33] LABS: ALBUMIN 2.5 g/dL (3.4-4.8); CALCIUM 8.4 mg/dL (8.4-11.0); CREATININE 2.88 mg/dL (0.55-1.30); TOTAL BILIRUBIN 0.7 mg/dL (0.0-1.0); TOTAL PROTEIN, SERUM 6.6 g/dL (6.4-8.3)
--- NOTE | 2017-02-16 07:15 | NUR ---
Price of care Pt with 3L oxygen via nasal canula, lung sounds crackles. Oxygen saturation 93%. On Lasix drip 4mg/min. +4 Pitting edema to all extremities. Scrotal edema. On restraints without sign of injury. Turned and repositioned. Zguard applied to sacrum and scrotum. Will continue to monitor.
[2017-02-16] MEDS: IPRATROPIUM/ALBUTEROL SULFATE 3 ML AMPUL.NEB INH PRN ×3 (07:53→21:37)
[2017-02-16] MEDS: ASCORBIC ACID 500 MG TABLET GT SCH ×2 (08:15→21:12)
[2017-02-16] MEDS: MILK OF MAGNESIA 30 ML UDC GT SCH (08:15)
[2017-02-16] MEDS: LACTOBACILLUS RHAMNOSUS GG 1 CAP CAPSULE PO SCH ×2 (08:15→21:12)
[2017-02-16] MEDS: ENOXAPARIN SODIUM 40 MG/0.4 ML SYRINGE SUBCUT SCH (08:17)
[2017-02-16] MEDS: PANTOPRAZOLE GRANULES PACKET 40 MG GT SCH (08:17)
[2017-02-16] MEDS: MUPIROCIN 2% TOPICAL OINTMENT 22 GM TP SCH ×2 (08:18→21:11)
--- NOTE | 2017-02-16 09:05 | NUR ---
DISCHARGE PLANNING Called patient Shireen Abdullahi [phone] left voice message requesting return call back. Called [facility] spoke with Sylwia in medical records dept who confirmed Shireen only personal service representative and confirmed contact number on file same on facesheet. Spoke with Macie who was made aware still pending discharge order for bed assignment. Addendum: 02/16/17 at 1222 by Feli AYALA Charge Nurse Isela made aware patient accepted [facility] pending discharge order and if patient can transfer to [facility] status. Spoke with [facility] who put in requested for ICU bed availability and will notify DCP when bed becomes available. DCP will follow up. Addendum: 02/16/17 at 1559 by Feli Myers DP called and spoke with Macie, [place] liaison who will follow up on ICU bed availability. DCP will continue to follow up.
[2017-02-16] MEDS: FUROSEMIDE 100 MG in D5W 90 ML IV SCH (09:40)
--- NOTE | 2017-02-16 12:35 | NUR ---
Nutrition F/U Admitting Diagnosis Acute respiratory failure, COPD Reviewed Pertinent Medical/Surgical Hx Medical Record Primary RN Medical History Comment: DM, CVA, HTN, CHF, CKD, obesity, L side craniotomy, GT placement per MD notes Subjective Information Pt seen resting in bed, +nasal cannula, +bilateral wrist restraints, seemingly lethargic, w/ TF infusing as per MD orders. Per RN, pt was able to tolerate 60% of breakfast; noted 100% intakes of coffee, Boost Plus supplement, and yogurt. RN also reported that pt has been tolerating TF well, no residuals or s/s aspiration from either PO intakes/TF. RD noted no active TF order; likely accidently completed again, as pt only takes PO diet for oral gratification. RN reported that pt will continue on lasix d/t 4+ pitting edema and lung crackles/SOB. Per EMR, PO Intakes: 38% average x2 meals. TF Intakes: 400 ml 02/16/17. Residuals: 10 ml 02/16/17. Abd is soft w/ active bowel sounds. Last BM x1 02/15/17. I/O: 1348/1090 (+258 ml) per 12 hours. Recommend continuing puree diet and re-implementing Diabetisource AC at 50 ml/hr, Free Water Flush: 100 via GT. Pt is not appropriate for nutrition education. Current Diet Order/Nutrition Support Pureed x5 days Patient/Significant Other Unable To Verbalize Education Provided Not Indicated Pertinent Medications furosemide/D5% IV at 4 ml/hr (14 kcal/day), colace, MOM, dulcolax suppository Pertinent Labs BG 378 H, POC BG 394 H Height (Feet) 5 feet Height (Inches) 8.00 inches Weight (Pounds) 249 pounds (admission) BEDSCALE WT: 364 lb, 166 kg (02/16/17); likely inaccurate d/t multiple items on bedscale Weight (Calculated Kilograms) 112.073784 kilograms Patient Weight 112.945 kg Body Mass Index 37.86 kg/m2 Usual Weight 210 lbs %UBW 119 %IBW 161 [place]/Adjusted Body Weight IBW: 154 lb, 70 kg. Adj IBW (obesity): 178 lb, 81 kg Recent Weight Change Yes - Possible unintentional 26 lb wt loss within 6 months; 9% wt change Weight Status Obese Gastrointestinal Symptoms None Last BM Feb 13, 2017 Food Allergies Unknown Usual Diet At Home Bhaskar Marx: Glucerna 1.2 at 50 cc/hr x20 hours; ney, SHANTEL, [facility] Skin Integrity Comment: Elijah scale: 13; per nursing notes, L/R arm: bruise; lower R leg: excoriation; posterior coccyx: denuded Current % PO Poor Estimated Energy Expenditure (kcals/day) 8232-0970 kcal/day (25-30 kcal/kg IBW for maintenance) Estimated Protein Required (g/day) 42-91 gm/day (1.3-2 gm/kg IBW for maintenance) Estimated Fluid Required (l/day) Per MD (CHF, CKD) Problem/Etiology/Signs/Symptoms Unintentional wt loss related to pathophysiological causes as evidenced by wt Hx: 275 lb, 125 kg (08/2016), and 26 lb possible wt loss and 9% wt change within five months. Expected Outcomes/Goals - Monitor appetite and EN tolerance w/ goal of pt meeting 100% of estimated nutritional needs, labs trending WNL, normal GI function, and skin integrity/wt maintenance Dietitian Recommendations * Recommend continuing pureed diet per MD * Recommend Diabetisource AC at 50 ml/hr, Free Water Flush: 100 via GT Provides: 1440 kcal/day, 72 gm protein/day, and 1082 ml free water/day Meets: 106% of lower end of estimated caloric needs and 79% of upper end of estimated protein needs Follow Up Moderate Risk: F/U in 3-5 days Addendum: 02/17/17 at [address] Nutrition Consult (Non-intact skin/IAD) 02/16/17 [id number]
--- NOTE | 2017-02-16 13:00 | NUR ---
Changed guzman justin Observed urine leaking through the guzman insertion site. Flushed guzman catheter. Showed evidence of being clogged. Guzman catheter changed including guzman bag. Pt tolerated procedure well. Urine draining well without leak. Will continue to monitor.
[2017-02-16] MEDS: LORazepam 1 MG TABLET GT PRN (14:15)
--- NOTE | 2017-02-16 15:17 | NUR ---
NOTES DR. GEORGE CAME AND EXAMINED THE PATIENT;INFORMED REGARDING PATIENT'S CONSTANT HIGH BLOOD PRESSURE EVEN AFTER GIVING PRN BLOOD PRESSURE MEDS SAID ITS OKAY AND WILL LOOK INTO IT Addendum: 02/16/17 at 1846 by Marie Hogan RN SHOWED MD THE TREND LIST REPORT FROM [id number] WITH BLOOD PRESSURE RANGING FROM 151/81-179/[id number] STATED "ITS OKAY ITS NOT TOO HIGH"
[2017-02-16] MEDS: ACETYLCYSTEINE 20% 4 ML VIAL (RT) INH SCH ×2 (15:29→21:36)
--- NOTE | 2017-02-16 16:00 | NUR ---
Paged Dr. Castaneda for pt's agitation and restlessness; Ativan not yet due at this time.
--- NOTE | 2017-02-16 16:05 | NUR ---
Elijah Scale Evaluation Patient evaluated for a low Elijha score of 13. Patient was awake, alert, confused, and received in a Mckay bed with an IsoFlex JOSEPH low air-loss mattress. Patient is unable to turn in bed independently. Skin is poor; Buttocks have erythema from IAD; Bilateral lower extremities have erythema; Right buttock at opal-anal area has non-intact skin from IAD with red tissue, no drainage. Recommend reposition patient side to side only every two hours with pillow support, and off-load pressure areas with pillows for pressure re-distribution. Elevate, off-load and float bilateral heels with pillows. Perform Skin care and monitor skin integrity q shift. Use Calmoseptine cream on opal, buttocks, and other moisture susceptible areas qid and as needed for soiling. Maintain patient on a low air-loss mattress.
[2017-02-16] MEDS ORDERED: LORazepam 1 MG TABLET PO ONE (16:45)
--- NOTE | 2017-02-16 17:50 | NUR ---
Followed up Becky from the pharmacy.
[2017-02-16] MEDS: MENTHOL/ZINC OXIDE 113 GM OINT. TP SCH (17:52)
--- NOTE | 2017-02-16 18:00 | NUR ---
BP PRN BP medications given every time they are due. PT denied pain when RN specifically asked him if he is in pain. Also denied anxiety every time he is asked about it. Respiration rate within normal limits. NO SOB. Gupta patent draining yellow colored urine. Call light in reach. Good skin care provided throughout shift.
--- NOTE | 2017-02-16 19:10 | NUR ---
Report given to My,RN and endorsed all care.
--- NOTE | 2017-02-16 20:00 | NUR ---
PM ASSESSMENT PT RESTING BED, APPEARS TO BE CONFUSED AND LETHARGIC. SINUS RHYTHM ON SLOT FLOORPERSON. PT ON 02 3L NC. O2 SAT 95% BP 166/85. PICC LINE NOTED TO RIGHT UPPER ARM DRESSING CLEAN DRY AND INTACT. NO SIGNS OF INFECTION OR INFILTRATION NOTED. LASIX RUNNING @ 4 ML/HR. NS INFUSING @ 2 ML/HR. PT ON BILATERAL SOFT WRIST RESTRAINTS. GOOD CIRCULATION AND SKIN NOTED TO ARMS. G-TUBE NOTED WITH 30ML RESIDUAL. DIABETISOURCE RUNNING @ 50 ML/HR. ENGLE CATHETER IN PLACE DRAINING YELLOW URINE. PT HAS GENERALIZED PITTING EDEMA. WOUND NOTED TO PT'S SACRUM AND RIGHT ELBOW COVERED WITH DRY DRESSING. BED AT LOWEST POSITION. CALL LIGHT WITHIN REACH. CONTINUE TO MONITOR.
[2017-02-17] VITALS (20 sets, daily range): BP systolic 130–173; BP diastolic 68–104; PULSE 69–85; RESP 11–22; TEMP 96.8–97.8; O2SAT 93–97
[2017-02-17] MEDS: HYDROmorphone 2 MG TAB GT PRN (02:56)
[2017-02-17] MEDS: cloNIDine HCL 0.1 MG TABLET GT PRN ×3 (03:02→17:56)
--- NOTE | 2017-02-17 04:00 | NUR ---
Hygiene CHG bath given. wound dressing change done. perineal care done. pt tolerated well. pt vital signs stable.
[2017-02-17] MEDS: PIPERACILLIN/TAZO 2.25G/DEX-IS 50 ML IV SCH ×3 (05:26→17:56)
[2017-02-17] MEDS: hydrALAZINE HCL 20 MG/ML VIAL IVP PRN ×2 (06:06→14:08)
[2017-02-17] MEDS: INSULIN REGULAR, HUMAN 100 UNITS/ML, 10 ML VIAL (novoLIN R) SUBCUT PRN ×3 (06:25→16:55)
[2017-02-17 06:26] LABS: ALBUMIN 2.3 g/dL (3.4-4.8); CALCIUM 8.4 mg/dL (8.4-11.0); CREATININE 2.87 mg/dL (0.55-1.30); POTASSIUM 5.5 mmol/L (3.5-5.1); TOTAL BILIRUBIN 0.7 mg/dL (0.0-1.0); TOTAL PROTEIN, SERUM 6.2 g/dL (6.4-8.3)
[2017-02-17 06:41] LABS: BASOPHILS % (AUTO) 0.5 % (0.0-2.0); EOSINOPHILS % (AUTO) 0.2 % (0.0-4.0); HEMATOCRIT 26.7 % (36-54); HEMOGLOBIN 8.9 g/dL (14.0-18.0); LYMPHOCYTES # (AUTO) 0.2 K/uL (1.0-5.5); MEAN CORPUSCULAR HEMOGLOBIN 29 pg (27-31); MEAN CORPUSCULAR HGB CONC 33 % (32-36); MEAN CORPUSCULAR VOLUME 86 fL (79.0-98.0); MONOCYTES # (AUTO) 0.2 K/uL (0.0-1.0); MONOCYTES % (AUTO) 4.4 % (1.7-9.3); NEUTROPHILS # (AUTO) 4.5 K/uL (1.8-7.7); NEUTROPHILS % (AUTO) 89.9 % (40.0-70.0); PLATELET COUNT (AUTO) 56 K/uL (130-430); RED BLOOD CELL COUNT(AUTO) 3.11 MIL/uL (4.2-6.2); RED CELL DISTRIBUTION WIDTH 16.8 % (9.0-15.0); WHITE BLOOD COUNT (AUTO) 4.9 K/uL (4.8-10.8)
--- NOTE | 2017-02-17 07:17 | NUR ---
gave shift report to oncoming nurse
--- NOTE | 2017-02-17 07:20 | NUR ---
AM Rounds: Received pt sitting semi-fowlers in bed. No acute signs of distress noted at this time. Pt is awake and alert but confused. A&Ox1 to name, reoriented to time, place, purpose. Saturating well on 3L via NC. IV PICC intact to RUE with no redness or swelling noted to site. GT intact to abdomen, flushing well. Gupta cath draining well to gravity. Bilateral pitting edema noted to BLE and BUE. Aspiration, fall, contact, and pressure ulcer precautions in place. Continue to monitor pt closely.
[2017-02-17] MEDS: ACETYLCYSTEINE 20% 4 ML VIAL (RT) INH SCH (08:07)
[2017-02-17] MEDS: IPRATROPIUM/ALBUTEROL SULFATE 3 ML AMPUL.NEB INH PRN (08:08)
[2017-02-17] MEDS: methylPREDNISolone SOD SUCC 40 MG/ML VIAL IVP SCH (08:27)
[2017-02-17] MEDS: MILK OF MAGNESIA 30 ML UDC GT SCH (08:27)
[2017-02-17] MEDS: MUPIROCIN 2% TOPICAL OINTMENT 22 GM TP SCH (08:28)
[2017-02-17] MEDS: PANTOPRAZOLE GRANULES PACKET 40 MG GT SCH (08:28)
[2017-02-17] MEDS: LACTOBACILLUS RHAMNOSUS GG 1 CAP CAPSULE PO SCH (08:28)
[2017-02-17] MEDS: ASCORBIC ACID 500 MG TABLET GT SCH (08:28)
--- NOTE | 2017-02-17 08:47 | NUR ---
DISCHARGE PLANNING Spoke with [facility] who will follow up on ICU bed availability. Macie will return call to DCP/Nursing station once bed becomes available. Addendum: 02/17/17 at 1157 by Feli AYALA Spoke with Macie who will continue to follow up on ICU bed available at [facility] DCP will follow up. Addendum: 02/17/17 at 1314 by Feli Myers DP Spoke with Macie patient accepted and assigned to ICU room G at [facility] RN to report [phone], bed available after 7pm. Called patient Shireen Abdullahi [phone] left second voice message requesting return call back. Addendum: 02/17/17 at 1405 by Feli Myers DP MINE Allan made aware. Called [facility] spoke with Dionna jasso staff available to arrange transport. Called [facility] [phone] spoke with Matt arranged ACLS (Biomedical Equipment Specialist/O2) transport poultry picking machine tender 7pm.
[2017-02-17] MEDS: ENOXAPARIN SODIUM 40 MG/0.4 ML SYRINGE SUBCUT SCH (09:38)
[2017-02-17] MEDS: MENTHOL/ZINC OXIDE 113 GM OINT. TP SCH (09:39)
--- NOTE | 2017-02-17 09:53 | NUR ---
RN Rounds: AM meds given per Md order. Pt tolerates well via GT. Pt medicated for elevated BP. Continue to monitor pt closely.
--- NOTE | 2017-02-17 11:59 | NUR ---
Dr. Chilel Here: Dr. Chilel here to see patient. MD aware of pt's potassium level 5.5. Pt pulled up and repositioned in bed. No acute sign of distress noted. Pt remains arousable to name. Saturating well at 3L via NC. Pt denies pain. Aspiration precautions maintained. Call light in reach. Continue to monitor.
[2017-02-17] MEDS ORDERED: SODIUM POLYSTYRENE SULFONATE 15 GM/60 ML UDBTL GT ONE (12:15)
--- NOTE | 2017-02-17 12:50 | NUR ---
[facility] Called: [facility] called, bed available ICU G after 7PM at [facility] [place]. Labs, progress notes, and medication list faxed to [facility]. Dalila, case filler made aware.
--- NOTE | 2017-02-17 13:51 | NUR ---
Rounds: Pt sitting semi-fowlers in bed. No acute signs of distress noted at this time. Patient refuse lunch, able to drink boost. Aspiration, contact, and fall precautions in place. Pt pulled up and repositioned in bed. Oral care provided. Continue to monitor pt closely.
--- NOTE | 2017-02-17 14:10 | NUR ---
Restraints D/C: Restraints D/C, pt is calm and cooperative at this time. No attempts to pull out lines noted. Will continue to monitor pt closely.
--- NOTE | 2017-02-17 14:34 | NUR ---
Called : Called Shireen Abdullahi at [phone] and left a message to let her know that patient will be transferred at 7PM tonight to [facility] and requested that she return call for confirmation of transfer. Awaiting call back at this time.
--- NOTE | 2017-02-17 17:22 | NUR ---
Dr. Castaneda Here: Dr. Castaneda here, aware that pt will be transferred to [facility] at 1900. Blood sugar checked and coverage given. Call light in reach. Continue to monitor.
--- NOTE | 2017-02-17 17:25 | NUR ---
SPOKE TO ROWENA SKINNER, PATIENT'S MOTHER RE: TRANSFER TO [facility].
--- NOTE | 2017-02-17 18:55 | NUR ---
Closing Note: Gave report to Erick at [facility], he is aware that patient will be transferred at 1900. Pt sitting semi-fowlers in bed. No acute signs of distress noted. IV PICC intact to RUE with no redness or swelling noted to site. Gupta cath draining well to gravity. Pt pulled up and repositioned in bed. Call light in reach. Aspiration, fall, contact, and pressure ulcer precautions in place. Endorse plan of care to [facility] [facility].
--- NOTE | 2017-02-17 19:30 | NUR ---
PT TRANSFER PT WAS PICKED UP BY [facility] TO [facility] @ 1930. PT DISCHARGED IN STABLE CONDITION. ID BAND REMOVED. REPORT GIVEN TO AMBULANCE BY MINE THAKKAR.
== END 2017-02-17 19:30 | DRG 291 ==
LOC: SED 07:56 → SIC 10:57
PROVIDERS: ADMIT Family Medicine; ATTEND Family Medicine
PROC: 5A09457 Assistance with Respiratory Ventilation, 24-96 Consecutive Hours, Continuous Positive Airway Pressure (ICD-10-PCS; principal; 2017-02-11)
PROC: 02HV33Z Insertion of Infusion Device into Superior Vena Cava, Percutaneous Approach (ICD-10-PCS; 2017-02-13)
PROC: B548ZZA Ultrasonography of Superior Vena Cava, Guidance (ICD-10-PCS; 2017-02-13)
PROC: 30233N1 Transfusion of Nonautologous Red Blood Cells into Peripheral Vein, Percutaneous Approach (ICD-10-PCS; 2017-02-15)
DX: I13.0 Hypertensive heart and chronic kidney disease with heart failure and stage 1 through stage 4 chronic kidney disease, or unspecified chronic kidney disease (principal); I50.23 Acute on chronic systolic (congestive) heart failure; J96.21 Acute and chronic respiratory failure with hypoxia; E43 Unspecified severe protein-calorie malnutrition; N17.0 Acute kidney failure with tubular necrosis; G93.41 Metabolic encephalopathy; I69.351 Hemiplegia and hemiparesis following cerebral infarction affecting right dominant side; J90 Pleural effusion, not elsewhere classified; J44.1 Chronic obstructive pulmonary disease with (acute) exacerbation; J44.0 Chronic obstructive pulmonary disease with (acute) lower respiratory infection; D69.6 Thrombocytopenia, unspecified; G47.33 Obstructive sleep apnea (adult) (pediatric); D72.819 Decreased white blood cell count, unspecified; E11.22 Type 2 diabetes mellitus with diabetic chronic kidney disease; N18.3 Chronic kidney disease, stage 3 (moderate); E66.01 Morbid (severe) obesity due to excess calories; E87.5 Hyperkalemia; K21.9 Gastro-esophageal reflux disease without esophagitis; D63.1 Anemia in chronic kidney disease; E11.65 Type 2 diabetes mellitus with hyperglycemia; Z68.37 Body mass index [BMI] 37.0-37.9, adult; I25.2 Old myocardial infarction; Z79.899 Other long term (current) drug therapy; Z87.891 Personal history of nicotine dependence; Z91.5 Personal history of self-harm; I50.9 Heart failure, unspecified; N18.9 Chronic kidney disease, unspecified
CPT/HCPCS: 36415; 36600; 71010; 80048; 80053; 82550-TC; 82607; 82728; 82746; 82803-TC; 82962; 83540-TC; 83550-TC; 83605; 83880; 84484; 85025; 85610-TC; 85730-TC; 86886; 86900; 86901; 86920; 87040-TC; 87081; 93005; 94640; 94660; 96365; 99291; A6209; C1751; J0360; J0696; J1030; J1650; J1815; J1940; J2543; J2930; J7030; J7050; J7060; P9021; Q0162